=== PATIENT | female | born 1990 | race Caucasian/White ===

== ENCOUNTER 2021-02-21 17:44 | Emergency (ER) | payer SELFPAY ==
[~2021-02-21] VITALS: Ht 160 cm; Wt 81.2 kg
[2021-02-21 18:10] VITALS: BP 109/77
[2021-02-21] MEDS ORDERED: ACETAMINOPHEN ES 500 MG TABLET ONE (18:25)
[2021-02-21] MEDS ORDERED: ACETAMINOPHEN 325 MG TABLET PO ONE (18:30)
[2021-02-21] MEDS ORDERED: IBUP-1955 PO (19:11)
[2021-02-21] MEDS ORDERED: CYCL5TAB PO (19:11)
== END 2021-02-21 19:26 | disposition home or self-care (01) ==
LOC: ER 17:44
DX: R07.89 Other chest pain (principal); M54.2 Cervicalgia; Z60.2 Problems related to living alone; Z79.899 Other long term (current) drug therapy; V49.49XA Driver injured in collision with other motor vehicles in traffic accident, initial encounter; Y93.89 Activity, other specified; Y92.488 Other paved roadways as the place of occurrence of the external cause; Y99.8 Other external cause status
CPT/HCPCS: 71045-TC; 72050-TC